=== PATIENT | female | born 1975 | race African-American/Black ===

== ENCOUNTER 2024-11-23 18:29 | Inpatient (IN) | payer SELFPAY ==
[2024-11-23] MEDS: cefTRIAXone 1 GM, Lidocaine 1% 2.1 ML IM ONE (19:17)
[2024-11-23] MEDS: Diphtheria,Pertussis(Acell),Tetanus Vaccine 0.5 ML Syringe IM ONE (19:19)
[2024-11-23] MEDS ORDERED: Naloxone 0.4 MG/ML SDV IVPUSH PRN ×2 (22:24→22:28)
[2024-11-23 22:39] LABS: BASOPHILS ABSOLUTE AUTO 0.0 K/mm3 (0.0-0.2); BASOPHILS PERCENT AUTO 0.4 % (0.0-1.0); EOSINOPHILS ABSOLUTE AUTO 0.1 K/mm3 (0.0-0.4); EOSINOPHILS PERCENT AUTO 1.1 % (0.0-6.0); IMMATURE GRAN ABSOLUTE AUTO 0.06 K/mm3 (0.00-0.05); IMMATURE GRAN PERCENT AUTO 0.6 % (0.0-0.4); LYMPHOCYTES ABSOLUTE AUTO 2.1 K/mm3 (1.0-4.8); LYMPHOCYTES PERCENT AUTO 20.6 % (24.0-44.0); MONOCYTES ABSOLUTE AUTO 0.6 K/mm3 (0.0-0.8); MONOCYTES PERCENT AUTO 6.3 % (0.0-8.0); NEUTROPHILS ABSOLUTE AUTO 7.2 K/mm3 (1.8-7.7); NEUTROPHILS PERCENT AUTO 71.0 % (41.0-71.0); NRBC ABSOLUTE 0.02 (0.00-0.02); NRBC PERCENT 0.2 % (0.0-0.2); PLATELET COUNT,PLT 305 K/mm3 (150-400); RED BLOOD CELL COUNT 3.32 M/mm3 (4.10-5.30); WHITE BLOOD CELL COUNT,WBC 10.07 K/mm3 (3.9-11.3)
[2024-11-23 23:06] LABS: A/G RATIO 0.8 (1-2); ALANINE AMINOTRANSFERASE,ALT 25 U/L (14-59); ASPARTATE AMNIOTRANSFERASE,AST 22 U/L (15-37); BILIRUBIN TOTAL 0.2 mg/dL (0.2-1.0); BLOOD UREA NITROGEN,BUN 10 mg/dL (7-18); CARBON DIOXIDE,CO2 27 mEq/L (21-32); CHLORIDE,CL 104 mEq/L (98-107); CREATININE 0.7 mg/dL (0.55-1.02); ESTIMATED GFR 106 mL/min (>60); GLUCOSE RANDOM 96 mg/dL (70-99); POTASSIUM,K 3.4 mEq/L (3.5-5.1); PROTEIN TOTAL,TP 7.2 g/dl (6.4-8.2); SODIUM,NA 139 mEq/L (136-145)
[2024-11-23 23:08] LABS: LACTIC ACID 0.9 mmol/L (0.4-2.0)
[2024-11-24 01:29] LABS: IRON,FE 9 ug/dL (50-170); PERCENT FE SATURATION 2 % (20-55)
[2024-11-24] MEDS ORDERED: Acetaminophen/oxyCODONE 325-5 MG Tab PO PRN (01:40)
[2024-11-24] MEDS ORDERED: Ondansetron 4 MG Tab.DIS PO PRN (01:40)
[2024-11-24 08:45] LABS: BASOPHILS ABSOLUTE AUTO 0.0 K/mm3 (0.0-0.2); BASOPHILS PERCENT AUTO 0.6 % (0.0-1.0); EOSINOPHILS ABSOLUTE AUTO 0.1 K/mm3 (0.0-0.4); EOSINOPHILS PERCENT AUTO 1.2 % (0.0-6.0); IMMATURE GRAN ABSOLUTE AUTO 0.02 K/mm3 (0.00-0.05); IMMATURE GRAN PERCENT AUTO 0.3 % (0.0-0.4); LYMPHOCYTES ABSOLUTE AUTO 1.1 K/mm3 (1.0-4.8); LYMPHOCYTES PERCENT AUTO 16.2 % (24.0-44.0); MONOCYTES ABSOLUTE AUTO 0.4 K/mm3 (0.0-0.8); MONOCYTES PERCENT AUTO 6.3 % (0.0-8.0); NEUTROPHILS ABSOLUTE AUTO 5.1 K/mm3 (1.8-7.7); NEUTROPHILS PERCENT AUTO 75.4 % (41.0-71.0); NRBC ABSOLUTE 0.00 (0.00-0.02); NRBC PERCENT 0.0 % (0.0-0.2); PLATELET COUNT,PLT 241 K/mm3 (150-400); RED BLOOD CELL COUNT 4.01 M/mm3 (4.10-5.30); WHITE BLOOD CELL COUNT,WBC 6.80 K/mm3 (3.9-11.3)
[2024-11-24 09:09] LABS: A/G RATIO 0.7 (1-2); ALANINE AMINOTRANSFERASE,ALT 25.0 U/L (14-59); ASPARTATE AMNIOTRANSFERASE,AST 26.0 U/L (15-37); BILIRUBIN TOTAL 0.7 mg/dL (0.2-1.0); BLOOD UREA NITROGEN,BUN 7.0 mg/dL (7-18); CARBON DIOXIDE,CO2 24.0 mEq/L (21-32); CHLORIDE,CL 107.0 mEq/L (98-107); CREATININE 0.6 mg/dL (0.55-1.02); EST CRCL DRUG DOSING (CG) 93.82 mL/min; ESTIMATED GFR 110.0 mL/min (>60); GLUCOSE RANDOM 104.0 mg/dL (70-99); POTASSIUM,K 3.7 mEq/L (3.5-5.1); PROTEIN TOTAL,TP 6.9 g/dl (6.4-8.2); SODIUM,NA 141.0 mEq/L (136-145)
[2024-11-24 09:42] LABS: IRON,FE 154 ug/dL (50-170); PERCENT FE SATURATION 41 % (20-55)
[2024-11-24] MEDS: Potassium Chloride 20 MEQ Tab.ER PO ONE (10:12)
[2024-11-24] MEDS: Ferrous Sulfate 324 MG Tab.EC PO ONE (10:12)
[2024-11-25] MEDS ORDERED: Ferrous Sulfate 324 MG Tab.EC PO SCH (07:00)
== END 2024-11-24 15:32 | disposition home or self-care (01) | DRG 989 ==
LOC: JD.ED 18:29 → JD.MS 11-24 01:40
PROVIDERS: ADMIT Family Medicine; ATTEND Family Medicine
PROC: 0YQ70ZZ Repair Right Femoral Region, Open Approach (ICD-10-PCS; principal; 2024-11-24)
PROC: 30233N1 Transfusion of Nonautologous Red Blood Cells into Peripheral Vein, Percutaneous Approach (ICD-10-PCS; principal; 2024-11-24)
DX: D50.8 Other iron deficiency anemias (principal); W54.0XXA Bitten by dog, initial encounter; E86.0 Dehydration; Z98.891 History of uterine scar from previous surgery
CPT/HCPCS: 12007; 36415; 36430; 73552-26-RT; 73552-RT; 73590-26-RT; 73590-RT; 80053; 82272; 82728; 83540; 83605; 84466; 85018; 85025; 86850; 86900; 86901; 86922; 90471; 90715; 96361; 96372; 96374; 96375; 97161-GP; 97530-GP; 99284-25; A9270-GY; J0696; J1171; J2003; J3490; J7030; J7040; P9016